=== PATIENT | female | born 1990 | race Caucasian/White ===

== ENCOUNTER 2019-08-14 19:58 | Emergency (ER) | payer MEDICAID ==
[~2019-08-14] VITALS: Ht 162.6 cm; Wt 86.0 kg
--- NOTE | 2019-08-14 20:04 | PHYS DOC ---
Adult General Chief Complaint Chief Complaint: ".. I hurt thuy all over... some nausea. .. no bad food... did eat spaghetti for dinner... " [facility] HPI Patient is a 29 year old female who presents with above hx and complaints of abdomen pain. Patient denies any travel or specific ill contacts. Did eat spag hetti for inner. No specific ill contacts. Normally healthy. Is unsure if she could be . Pt. normally follows withEstrella Mccann for health care. Report normal stool this morning. No history of renal stones, colitis or inflammatory bowel disorders with her or family members. Review of Systems Review of Systems Constitutional: Denies fever or chills [] Eyes: Denies change in visual acuity, redness, or eye pain [] HENT: Denies nasal congestion or sore throat [] Respiratory: Denies cough or shortness of breath [] Cardiovascular: No additional information not addressed in HPI [] GI: Complaints of generalized abdominal pain, nausea,. No vomiting, bloody stools or diarrhea [] : Denies dysuria or hematuria [] Musculoskeletal: Denies back pain or joint pain [] Integument: Denies rash or skin lesions [] Neurologic: Denies headache, focal weakness or sensory changes [] Endocrine: Denies polyuria or polydipsia [] All other systems were reviewed and found to be within normal limits, except as documented in this note. Family History Family History Noncontributory Current Medications Current Medications See nursing for home management Allergies Allergies No known drug allergies Physical Exam Physical Exam Constitutional: Mild distress, non-toxic appearance. [] HENT: Normocephalic, atraumatic, bilateral external ears normal, oropharynx moist, no oral exudates, nose normal. [] Eyes: PERRLA, EOMI, conjunctiva normal, no discharge. [] Neck: Normal range of motion, no tenderness, supple, no stridor. [] Cardiovascular:Heart rate regular rhythm, no murmur [] Lungs & Thorax: Bilateral breath sounds clear to auscultation [] Abdomen: Bowel sounds are proactive, soft, no tenderness, no masses, no pulsatile masses. [] Obese. No rebound pain. Skin: Warm, dry, no erythema, no rash. [] Back: No tenderness, no CVA tenderness. [] Extremities: No tenderness, no cyanosis, no clubbing, ROM intact, no edema. [] No psoas sign. Neurologic: Alert and oriented X 3, normal motor function, normal sensory function, no focal deficits noted. [] Psychologic: Affect anxious, judgement normal, mood normal. [] EKG EKG [] Radiology/Procedures Radiology/Procedures [][place] [address] IMAGING REPORT Signed PATIENT: TAMELA GORDON ACCOUNT: [id number] : 1990 LOCATION: ER AGE: 29 SEX: F EXAM STATUS: REG ER ORD. PHYSICIAN: MELANI ZHU MD REASON: ABDOMINAL PAIN, HX PROCEDURE: ACUTE ABDOMEN SERIES EXAM: Frontal view of the chest, AP views of the abdomen in upright and supine positions. CLINICAL INDICATION: Abdominal pain, history of COMPARISON: None. FINDINGS and IMPRESSION: The heart is not enlarged. Mediastinal and hilar contours are normal. No focal parenchymal airspace opacity. No pleural effusion or pneumothorax. No abnormal small or large bowel dilatation. Moderate to large volume colonic stool content. No abnormal soft tissue mass effect. No suspicious calcifications are seen. No free intraperitoneal gas. Electronically signed by: Gregorio Garcia MD (08/14/2019 9:16 PM) [id number] DICTATED AND SIGNED BY: GREGORIO GARCIA MD DATE: 08/14/19 2116 CC: MELANI ZHU MD; RENÉ MCCANN MD ~ Course & Med Decision Making Course & Med Decision Making Pertinent Labs and Imaging studies reviewed. (See chart for details) Patient remain on a clear fluid diet only for the next 2 days. Take Tylenol and ibuprofen for pain. Follow-up primary care. Reexam if no improvement. [] Impression- 1. Abdomen pain 2. Constipation 3. Concern that she may be Wang Disclaimer Wang Disclaimer This electronic medical record was generated, in whole or in part, using a voice recognition dictation system. Departure Departure: Disposition: HOME/RESIDENCE PRIOR TO ADM Condition: STABLE Referrals: RENÉ MCCANN MD (PCP) MELANI ZHU MD Aug 14, 2019 20:04
[2019-08-14] MEDS ORDERED: IV RINGERS SOLUTION,LACTATED 1,000 ML IV SCH (20:19)
[2019-08-14 20:37] LABS: BASO # 0.1 x10^3/uL (0.0-0.2); BASO % 1 % (0-3); EOS # 0.3 x10^3/uL (0.0-0.7); EOS % 4 % (0-3); HEMATOCRIT 40.1 % (36.0-47.0); HEMOGLOBIN 13.1 g/dL (12.0-15.5); LYMPH % 26 % (24-48); MEAN CORPUSCULAR HEMOGLOBIN 30 pg (25-35); MEAN CORPUSCULAR HGB CONC 33 g/dL (31-37); MEAN CORPUSCULAR VOLUME 92 fL (79-100); MONO # 0.4 x10^3/uL (0.0-1.1); MONO % 6 % (0-9); NEUT % 63 % (31-73); PLATELET COUNT 266 x10^3/uL (140-400); RED BLOOD COUNT 4.39 x10^6/uL (3.50-5.40); RED CELL DISTRIBUTION WIDTH 13.1 % (11.5-14.5); WHITE BLOOD COUNT 7.8 x10^3/uL (4.0-11.0)
[2019-08-14 20:40] LABS: BARBITURATES NEG (NEG); BENZODIAZEPINES NEG (NEG); CANNABINOIDS POS (NEG); COCAINE NEG (NEG); METHADONE NEG (NEG); OPIATES NEG (NEG); PHENCYCLIDINE NEG (NEG)
[2019-08-14 20:41] LABS: BACTERIA,URINE FEW /HPF (0-FEW); BILIRUBIN,URINE NEG (NEG); CLARITY,URINE CLEAR; COLOR,URINE YELLOW; GLUCOSE,URINE NEG (NEG); NITRITE,URINE NEG (NEG); RBC,URINE OCC /HPF (0-2); SQUAMOUS EPITHELIAL CELL,UR MOD /LPF; UROBILINOGEN,URINE 0.2 mg/dL (0.2 mg/dL)
[2019-08-14 20:42] LABS: CALCIUM 8.8 mg/dL (8.5-10.1); CREATININE 0.7 mg/dL (0.6-1.0); GFR 100.4; POTASSIUM 3.8 mmol/L (3.5-5.1)
[2019-08-14 20:43] LABS: AMPHETAMINE/METHAMPHETAMINE NEG (NEG)
[2019-08-14] MEDS ORDERED: ONDANSETRON PF 4 MG/2 ML VIAL. IVP ONE (20:45)
[2019-08-14] MEDS ORDERED: FAMOTIDINE 20 MG/2 ML VIAL IVP ONE (20:45)
[2019-08-14 20:49] LABS: ALBUMIN 3.6 g/dL (3.4-5.0); DIRECT BILIRUBIN 0.1 mg/dL (0.0-0.2); TOTAL BILIRUBIN 0.3 mg/dL (0.2-1.0); TOTAL PROTEIN 7.2 g/dL (6.4-8.2)
--- NOTE | 2019-08-14 21:19 | RAD ---
EXAM: Frontal view of the chest, AP views of the abdomen in upright and supine positions. CLINICAL INDICATION: Abdominal pain, history of COMPARISON: None. FINDINGS and IMPRESSION: The heart is not enlarged. Mediastinal and hilar contours are normal. No focal parenchymal airspace opacity. No pleural effusion or pneumothorax. No abnormal small or large bowel dilatation. Moderate to large volume colonic stool content. No abnormal soft tissue mass effect. No suspicious calcifications are seen. No free intraperitoneal gas. Electronically signed by: Gregorio Guzman MD (08/14/2019 9:16 PM) [id number]
[2019-08-14 21:45] VITALS: BP 99/67
[2019-08-14] MEDS ORDERED: MAGNESIUM HYDROXIDE 2,400 MG/30 ML ORAL.SUSP. PO ONE (21:45)
[2019-08-14] MEDS ORDERED: KETOROLAC 30 MG/ML VIAL. IVP ONE (21:45)
== END 2019-08-14 21:50 | disposition home or self-care (01) ==
LOC: ER 19:58
DX: K59.00 Constipation, unspecified (principal)
CPT/HCPCS: 36415; 74022; 80048; 80076; 80307; 81001; 81025; 82150; 82550; 83690; 84484; 85025; 85610; 85730; 87086; 96374; 96375; 99285; J2405; J3490; J7120

== ENCOUNTER 2020-04-22 21:12 | Emergency (ER) | payer MEDICAID ==
[~2020-04-22] VITALS: Ht 162.6 cm; Wt 84.6 kg
[2020-04-22 21:54] LABS: BILIRUBIN,URINE NEG (NEG); CLARITY,URINE CLEAR; COLOR,URINE YELLOW; GLUCOSE,URINE NEG (NEG); NITRITE,URINE NEG (NEG)
[2020-04-22 22:00] LABS: BACTERIA,URINE FEW /HPF (0-FEW); RBC,URINE 0 /HPF (0-2); SQUAMOUS EPITHELIAL CELL,UR MOD /LPF
--- NOTE | 2020-04-22 22:03 | PHYS DOC ---
Past History Past Medical History: Anxiety, Depression, DVT Past Surgical History: , Other Additional Past Surgical Histo: GROIN STENT Alcohol Use: None General Adult EDM: Chief Complaint: KNEE SWELLING HPI: HPI: 30-year-old female presents with left knee pain. The patient has had intermittent pain with this knee for couple of years. Over the last 3 days she did something to aggravate it, but cannot think of a specific event. It is been hurting more more. She has been taking ibuprofen and Tylenol without much relief. It hurts in a horseshoe fashion under her kneecap. She was told in the past that she might have meniscal tear, but never had this fully evaluated. She denies feeling like it is getting give out or instability. She has no other complaints at this time. Review of Systems: Review of Systems: Constitutional: Denies fever or chills Eyes: Denies change in visual acuity HENT: Denies nasal congestion or sore throat Respiratory: Denies cough or shortness of breath Cardiovascular: Denies chest pain or edema GI: Denies abdominal pain, nausea, vomiting, bloody stools or diarrhea : Denies dysuria Musculoskeletal: Left knee pain Integument: Denies rash Neurologic: Denies headache, focal weakness or sensory changes Endocrine: Denies polyuria or polydipsia Lymphatic: Denies swollen glands Psychiatric: Denies depression or anxiety Heart Score: Risk Factors: Risk Factors: DM, Current or recent (<one month) smoker, HTN, HLP, family history of CAD, obesity. Risk Scores: Score 0 - 3: 2.5% MACE over next 6 weeks - Discharge Home Score 4 - 6: 20.3% MACE over next 6 weeks - Admit for Clinical Observation Score 7 - 10: 72.7% MACE over next 6 weeks - Early Invasive Strategies Allergies: Allergies: Allergies Coded Allergies Type Severity Reaction Last Updated Verified No Known Drug Allergies 08/14/19 No Physical Exam: PE: Constitutional: Well developed, well nourished, no acute distress, non-toxic appearance. [] HENT: Normocephalic, atraumatic, bilateral external ears normal, oropharynx moist, no oral exudates, nose normal. [] Eyes: PERRLA, EOMI, conjunctiva normal, no discharge. [] Neck: Normal range of motion, no tenderness, supple, no stridor. [] Cardiovascular:Heart rate regular rhythm, no murmur [] Lungs & Thorax: Bilateral breath sounds clear to auscultation [] Abdomen: Bowel sounds normal, soft, no tenderness, no masses, no pulsatile masses. [] Skin: Warm, dry, no erythema, no rash. [] Back: No tenderness, no CVA tenderness. [] Extremities: Tenderness along the joint line of the left knee, mild supra patellar swelling. Solid ligamentous end feel of the ACL, PCL, medial collateral, and lateral collateral ligaments.. [] Neurologic: Alert and oriented X 3, normal motor function, normal sensory function, no focal deficits noted. [] Psychologic: Affect normal, judgement normal, mood normal. [] Current Patient Data: Labs: Laboratory Tests Test 04/22/20 21:59 POC Urine HCG, Qualitative hcg negative (Negative) Vital Signs: Vital Signs Date Time Temp Pulse Resp B/P (MAP) Pulse Ox O2 Delivery O2 Flow Rate FiO2 04/22/20 21:25 98.5 89 20 120/68 (85) 95 Room Air EKG: EKG: [] Radiology/Procedures: Radiology/Procedures: [] Impressions: EXAM: Left lower extremity venous Doppler. HISTORY: Left lower extremity pain/swelling. History of deep venous thrombosis. COMPARISON: None. FINDINGS: Grayscale and Doppler analysis of the left lower extremity deep venous system was performed with graded compression and augmentation. The common femoral, greater saphenous, superficial femoral, popliteal and calf veins were assessed. A linear echogenic focus in the common femoral and popliteal veins is consistent with chronic nonocclusive thrombus. No acute appearing thrombus is identified. IMPRESSION: 1. Chronic nonocclusive thrombus in the left common femoral and popliteal veins. Electronically signed by: Isra Pryor MD (04/22/2020 11:54 PM) [facility] DICTATED AND SIGNED BY: XENIA PRYOR MD DATE: 04/22/20 [id number] CC: BIA JETER DO; RENÉ MCCANN MD ~ Course & Med Decision Making: Course & Med Decision Making Pertinent Labs and Imaging studies reviewed. (See chart for details) The patient mentioned to the nurse that she has a DVT history since 2010. I spoke with her and she has some sort of coagulation disorder. She has had a stent placed in the left leg within the last year. She states that this pain feels different than when she has had DVTs, but admits it is possible given her history. She gets spontaneous DVTs because of her medical condition. I have ordered an ultrasound. The ultrasound shows a nonocclusive chronic thrombus. I am not sure if this is contributing to her pain or if this is her possible meniscal tear. I will discharge her with a prescription for tramadol. She is stable for discharge at this time. [] Dragon Disclaimer: Dragon Disclaimer: This electronic medical record was generated, in whole or in part, using a voice recognition dictation system. Departure Departure: Impression: Primary Impression: Left anterior knee pain Disposition: 01 DC HOME SELF CARE/HOMELESS Condition: STABLE Referrals: RENÉ MCCANN MD (PCP) Patient Instructions: Knee Pain, [id number] Scripts Tramadol Hcl (TRAMADOL HCL) 50 Mg Tablet 50 MG PO PRN Q6HRS PRN for PAIN, #14 TAB Prov: BIA JETER DO 04/23/20 BIA JETER DO Apr 22, 2020 22:03
[2020-04-22] MEDS ORDERED: traMADol 50 MG TABLET ONE (22:15)
[2020-04-22] MEDS: traMADol 50 MG TABLET PO ONE (22:17)
--- NOTE | 2020-04-22 22:32 | RAD ---
EXAM: LEFT KNEE, 4 VIEWS. HISTORY: Left knee pain. COMPARISON: None. FINDINGS: No fractures are identified. Joint spaces are maintained. Alignment is normal. There is no joint effusion. IMPRESSION: 1. No fracture or joint effusion. Electronically signed by: Isra Pryor MD (04/22/2020 10:29 PM) [facility]
--- NOTE | 2020-04-22 23:57 | RAD ---
EXAM: Left lower extremity venous Doppler. HISTORY: Left lower extremity pain/swelling. History of deep venous thrombosis. COMPARISON: None. FINDINGS: Grayscale and Doppler analysis of the left lower extremity deep venous system was performed with graded compression and augmentation. The common femoral, greater saphenous, superficial femoral, popliteal and calf veins were assessed. A linear echogenic focus in the common femoral and popliteal veins is consistent with chronic nonocclusive thrombus. No acute appearing thrombus is identified. IMPRESSION: 1. Chronic nonocclusive thrombus in the left common femoral and popliteal veins. Electronically signed by: Isra Pryor MD (04/22/2020 11:54 PM) [facility]
[2020-04-23] MEDS ORDERED: TRAM50TA PO (00:36)
[2020-04-23 01:20] VITALS: BP 116/67
[2020-04-23] MEDS: HYDROcodone/APAP 5/325MG 1 TAB TABLET PO ONE (01:21)
[2020-04-23] MEDS ORDERED: START PACK - traMADol 1 STARTPACK TABLET PO ONE (01:22)
[2020-04-23] MEDS: START PACK - traMADol 1 STARTPACK TABLET PO ONE (01:23)
== END 2020-04-23 01:26 | disposition home or self-care (01) ==
LOC: ER 21:12
DX: M25.562 Pain in left knee (principal); M25.462 Effusion, left knee; Z86.718 Personal history of other venous thrombosis and embolism
CPT/HCPCS: 73564; 81001; 81025; 87077; 87086; 87186; 93971; 99285

== ENCOUNTER 2020-05-12 08:03 | Emergency (ER) | payer MEDICAID ==
[~2020-05-12] VITALS: Ht 162.6 cm; Wt 84.6 kg
[~2020-05-12 08:03] MED LIST: TRAM50TA PO
[2020-05-12 08:13] VITALS: BP 116/67
--- NOTE | 2020-05-12 08:26 | PHYS DOC ---
Past History Past Medical History: Anxiety, Depression, DVT Past Surgical History: , Other Additional Past Surgical Histo: GROIN STENT Smoking: Cigarettes Alcohol Use: None Drug Use: Marijuana General Adult EDM: Chief Complaint: SUICIDAL IDEATION HPI: HPI: Patient is a 30 y/o female with a history of depression and anxiety, who presents to the ED with suicidal ideation with a plan to cut her own wrists a fter getting into an argument with her boyfriend. She takes her prescribed Prozac and Abilify. Patient has previously had these thoughts only when she was a 15-16 y/o. Denies any other complaints. Review of Systems: Review of Systems: Constitutional: Denies fever or chills Eyes: Denies redness or eye pain HENT: Denies nasal congestion or sore throat Respiratory: Denies cough or shortness of breath Cardiovascular: Denies chest pain or palpitations GI: Denies abdominal pain, nausea, or vomiting : Denies dysuria or hematuria Musculoskeletal: Denies back pain or joint pain Integument: Denies rash or skin lesions Neurologic: Denies headache, focal weakness or sensory changes Complete systems were reviewed and found to be within normal limits, except as documented in this note. Allergies: Allergies: Allergies Coded Allergies Type Severity Reaction Last Updated Verified No Known Drug Allergies 04/24/20 No Physical Exam: PE: Constitutional: Well developed, well nourished, no acute distress, non-toxic appearance HENT: Normocephalic, atraumatic Eyes: PERRL, EOMI, conjunctiva normal, no discharge Neck: Normal range of motion, no tenderness, supple Lungs & Thorax: No respiratory distress, equal chest rise and fall Abdomen: Soft, no tenderness Skin: Warm, dry, no erythema, no rash Back: No tenderness, no CVA tenderness Extremities: No tenderness, ROM intact, no edema Neurologic: Alert and oriented X 3, normal motor function, normal sensory function, no focal deficits noted Psychologic: Appears tearful and anxious, reports suicidal ideation Radiology/Procedures: Radiology/Procedures: [] Course & Med Decision Making: Course & Med Decision Making Pertinent Labs studies reviewed. (See chart for details) Pt is a 30 y/o female who presents with suicidal ideation with a plan. Labs obtained and posted to chart. UA showed positive nitrites. Empiric antibiotics given. Medically Cleared 0958. Psychiatric assessment performed. Patient deemed safe for discharge with safety plan with close follow up with [facility]. Patient stable for discharge with outpatient follow-up with PCP/psychiatrist. Discussed findings and plan with patient, who acknowledges understanding and agreement. Wang Disclaimer: Wang Disclaimer: This electronic medical record was generated, in whole or in part, using a voice recognition dictation system. Departure Departure: Impression: Primary Impression: Suicidal ideation Additional Impression: Urinary tract infection Qualified Codes: N30.00 - Acute cystitis without hematuria Disposition: [place] HOME SELF CARE/HOMELESS Condition: STABLE Referrals: RENÉ MCCANN MD (PCP) Patient Instructions: Suicidal Feelings, How to Help Yourself, Urinary Tract Infection, [id number] Scripts Cephalexin (KEFLEX) 500 Mg Capsule 1 CAP PO TID for UTI for 7 Days, #21 CAP 0 Refills Prov: CANDI BURDEN DO 05/12/20 CANDI BURDEN DO May 12, 2020 08:26
[2020-05-12 08:43] LABS: BASO # 0.1 x10^3/uL (0.0-0.2); BASO % 1 % (0-3); EOS # 0.4 x10^3/uL (0.0-0.7); EOS % 5 % (0-3); HEMATOCRIT 41.3 % (36.0-47.0); HEMOGLOBIN 13.4 g/dL (12.0-15.5); LYMPH # 1.7 x10^3/uL (1.0-4.8); LYMPH % 22 % (24-48); MEAN CORPUSCULAR HEMOGLOBIN 30 pg (25-35); MEAN CORPUSCULAR HGB CONC 32 g/dL (31-37); MEAN CORPUSCULAR VOLUME 93 fL (79-100); MONO # 0.5 x10^3/uL (0.0-1.1); MONO % 7 % (0-9); NEUT # 4.9 x10^3uL (1.8-7.7); NEUT % 65 % (31-73); PLATELET COUNT 231 x10^3/uL (140-400); RED BLOOD COUNT 4.44 x10^6/uL (3.50-5.40); RED CELL DISTRIBUTION WIDTH 13.3 % (11.5-14.5); WHITE BLOOD COUNT 7.5 x10^3/uL (4.0-11.0)
[2020-05-12 08:54] LABS: CALCIUM 9.7 mg/dL (8.5-10.1); CREATININE 0.8 mg/dL (0.6-1.0); GFR 85.4; POTASSIUM 3.8 mmol/L (3.5-5.1)
[2020-05-12 08:57] LABS: SALIC 3.8 mg/dL (2.8-20.0)
[2020-05-12 08:58] LABS: ACETAMIN < 2.0 mcg/mL (10-30); ETHANOL < 10 mg/dL (0-10)
[2020-05-12 09:01] LABS: ALBUMIN 3.9 g/dL (3.4-5.0); ALBUMIN/GLOBULIN RATIO 1.1 (1.0-1.7); TOTAL BILIRUBIN 0.3 mg/dL (0.2-1.0); TOTAL PROTEIN 7.5 g/dL (6.4-8.2)
[2020-05-12 09:03] LABS: BILIRUBIN,URINE NEG (NEG); CLARITY,URINE CLOUDY; COLOR,URINE YELLOW; GLUCOSE,URINE NEG (NEG); NITRITE,URINE POS (NEG); UROBILINOGEN,URINE 0.2 mg/dL (0.2 mg/dL)
[2020-05-12 09:04] LABS: BACTERIA,URINE MANY /HPF (0-FEW); SQUAMOUS EPITHELIAL CELL,UR MANY /LPF
[2020-05-12 09:06] LABS: AMPHETAMINE/METHAMPHETAMINE NEG (NEG); BARBITURATES NEG (NEG); BENZODIAZEPINES NEG (NEG); CANNABINOIDS POS (NEG); COCAINE NEG (NEG); METHADONE NEG (NEG); OPIATES NEG (NEG); PHENCYCLIDINE NEG (NEG)
[2020-05-12] MEDS ORDERED: CEPHALEXIN 250 MG CAPSULE PO ONE (10:10)
[2020-05-12] MEDS ORDERED: BUTALB/APAP/CAFEIN 50/325/40MG TABLET. PO ONE (12:45)
[2020-05-12] MEDS ORDERED: KETOROLAC 30 MG/ML VIAL. IM ONE (13:45)
[2020-05-12] MEDS ORDERED: ONDANSETRON ODT 4 MG TAB.RAPDIS PO ONE (13:45)
[2020-05-12] MEDS ORDERED: CEPH-264 PO (16:03)
== END 2020-05-12 17:20 | disposition home or self-care (01) ==
LOC: ER 08:03
DX: N30.00 Acute cystitis without hematuria (principal); R45.851 Suicidal ideations; F41.9 Anxiety disorder, unspecified; F32.9 Major depressive disorder, single episode, unspecified; F17.210 Nicotine dependence, cigarettes, uncomplicated; F12.90 Cannabis use, unspecified, uncomplicated; Z98.890 Other specified postprocedural states; Z86.718 Personal history of other venous thrombosis and embolism
CPT/HCPCS: 36415; 80053; 80307; 81001; 83735; 85025; 87077; 87086; 96372; 99285; G0480; J1885; Q0162; 80329; 99284